=== PATIENT | female | born 1950 | race Caucasian/White ===

== ENCOUNTER 2021-01-21 09:36 | Outpatient (CLI) | payer MEDICARE, OTHER | END 2021-01-21 09:37 | disposition home or self-care (01) | LOC: CSHMRI 09:36 | PROVIDERS: ATTEND Internal Medicine Gastroenterology | DX: R10.13 Epigastric pain (principal); K21.9 Gastro-esophageal reflux disease without esophagitis; K58.9 Irritable bowel syndrome, unspecified; K59.00 Constipation, unspecified; Z86.010 Personal history of colon polyps; K76.89 Other specified diseases of liver; K76.0 Fatty (change of) liver, not elsewhere classified; N28.1 Cyst of kidney, acquired; K86.2 Cyst of pancreas; D17.5 Benign lipomatous neoplasm of intra-abdominal organs | CPT/HCPCS: 74183 ==